=== PATIENT | female | born 1985 | race Caucasian/White ===

== ENCOUNTER → 2018-04-13 | Outpatient (CLI) | payer OTHER | END | disposition home or self-care (01) | LOC: LABWHC1 09:46 | PROVIDERS: ATTEND Internal Medicine Infectious Disease | DX: A49.3 Mycoplasma infection, unspecified site (principal); N34.1 Nonspecific urethritis | CPT/HCPCS: 36415; 84703 ==

== ENCOUNTER 2018-09-23 13:46 | Emergency (ER) | payer OTHER ==
[2018-09-23 14:06] VITALS: RESP 18
[2018-09-23] MEDS ORDERED: SODIUM CHLORIDE 0.9% 500 ML 500 ML IV ONE (14:36)
--- NOTE | 2018-09-23 15:00 | ED ---
Female Urogenital HPI - General Chief complaint: Vaginal Bleeding Stated complaint: 6 weeks & bleeding Source: patient Mode of arrival: ambulatory Limitations: no limitations - History of Present Illness Initial comments: 32-year-old female who denies past medical history presenting for evaluation for vaginal bleeding in . Patient states that she is about 6 weeks , last menstrual period was August 15, 2018. She states she seen on a clinic last Friday or ultrasound was performed revealing a viable intrauterine . Patient states that today she noticed a caution of blood around 1 PM when she's restroom, she states since the bleeding has decreased however remains persistent. Patient does admit to mild abdominal cramping, denies severe pain. Patient states she's been nauseated the entire , denies any changes. Patient denies any vomiting, diarrhea, fever, chills, urgency Frequency, dysuria, vaginal discharge. Remainder was negative, patient denies any recent shortness of breath, chest pain, back pain, numbness or tingling, constipation or diarrhea, headaches or visual changes, or any other complaints. Vital signs upon arrival within normal limits. Patient appears well, no signs of acute distress. Patient appears comfortable. Last Menstrual Period: 08/15/18 - Related Data Home Medications Medication Instructions Recorded Confirmed Dpq-[id number]-[id number] Acid 1 cap PO AC-SUPPER 09/23/18 09/23/18 [-U Capsule (formulary)] Previous Rx's Medication Instructions Recorded Cephalexin [Keflex] 500 mg PO Q12HR 5 Days #10 cap 09/23/18 Allergies Allergy/AdvReac Type Severity Reaction Status Date / Time No Known Allergies Allergy Verified 09/23/18 15:28 Review of Systems ROS Statement: Those systems with pertinent positive or pertinent negative responses have been documented in the HPI. ROS Other: All systems not noted in ROS Statement are negative. Past Medical History Past Medical History: No Reported History History of Any Multi-Drug Resistant Organisms: None Reported Past Surgical History: No Surgical Hx Reported Past Psychological History: Anxiety Smoking Status: Former smoker Past Alcohol Use History: Occasional Past Drug Use History: None Reported General Exam - General Exam Comments Initial Comments: General: The patient is awake and alert, in no distress, and does not appear acutely ill. Eye: Pupils are equal, round and reactive to light, extra-ocular movements are intact. No nystagmus. There is normal conjunctiva bilaterally. No signs of icterus. Ears, nose, mouth and throat: There are moist mucous membranes and no oral lesions. Neck: The neck is supple, there is no tenderness or JVD. Cardiovascular: There is a regular rate and rhythm. No murmur, rub or gallop is appreciated. Respiratory: Lungs are clear to auscultation, respirations are non-labored, breath sounds are equal. No wheezes, stridor, rales, or rhonchi. Gastrointestinal: No noted diaphoresis, jaundice, pallor, protecting postures or squirming. Symmetrical pigmentation of abdomen without signs of inflammation. Umbilicus mildline, inverted without swelling. No dilated veins. Abdomen no noted abdominal distention. No visible masses. No peristalsis, aortic pulsations, or ventral hernia. Bowel sounds audible in all 4 quadrants, unremarkable. Discomfort to palpation of the lower pelvic region, remainder of abdominal exam benign. Liver edge, not palpable. Spleen edge, right and left kidney not palpable. Superior bladder margin non-tender. Special Testing: Negative [place], Rov[place], McBurney, Ritika, cutaneous hyperesthesia. Iliopsoas and obturator tests negative bilaterally. Negative Heel Jar test.. No CVA tenderness. Digital rectal exam deferred. Negative lovett turners or cullens sign Musculoskeletal: Normal ROM, no tenderness. Strength 5/5. Sensation intact. Pulses equal bilaterally 2+. Neurological: A&O x 3. CN II-XII intact, There are no obvious motor or sensory deficits. Coordination appears grossly intact. Speech is normal. Skin: Skin is warm and dry and no rashes or lesions are noted. Psychiatric: Cooperative, appropriate mood & affect, normal judgment. Normal female hair pattern, shaved. Normal external examination no lesions. [place] moist mucosa, well rugated vagina. No vaginal discharge in vault. Small amount of blood in vaginal vault is open, black contents coming from os. No cervical motion or adnexal tenderness Limitations: no limitations Course Vital Signs 09/23/18 09/23/18 14:02 17:35 Temperature 98.6 F 98.2 F Pulse Rate 77 64 Respiratory 18 18 Rate Blood Pressure 124/81 118/81 O2 Sat by Pulse 100 97 Oximetry Medical Decision Making - Medical Decision Making 32yo with + , vaginal bleeding and mild abdominal cramping. Benign abdominal exam. Laboratory studies revealed HCG quant of 85, is is relatively low with LMP of 12-1-18 and 4 week gestational sac, however can be consistent with viable . too early to determine if viable. ABO obtained revealing O+. Pelvic ultrasound findings favor too early of to visualize intrauterine , there is a oval [id number] anechoic area WITHIN uterus. May reflect early gestational sac. No free fluid pelvic cul-de- sac. Hemoglobin stable. No need for Rhogam at this time. Pt will f/u with Dr. Kelli PALM for serial HCG and ultrasound. Upon pelvic exam there is no cervical motion or adnexal tenderness. No significant tenderness to patient of the pelvic region. This time I do feel patient has threatened versus spontaneous . Patient is to follow-up outpatient with [employer] Dr. Killian in the next 2-3 days for serial HCG and ultrasound. Pt is agreeable with plan and discharge. WBC and bacteria in urine will treat for possible underlying UTI. I called healthcare administration internship physician Dr. Barry speaking with her at 19: 08 discussing details of pt case, she will ensure close f/u with for serial HCG and U/S. - Lab Data Result diagrams: 09/23/18 15:05 09/23/18 15:05 Lab Results 09/23/18 09/23/18 09/23/18 Range/Units 15:05 15:05 15:05 WBC 6.8 (3.8-10.6) k/uL RBC 4.15 (3.80-5.40) m/uL Hgb 13.4 (11.4-16.0) gm/dL Hct 41.0 (34.0-46.0) % MCV 98.7 (80.0-100.0) fL MCH 32.2 (25.0-35.0) pg MCHC 32.6 (31.0-37.0) g/dL RDW 12.4 (11.5-15.5) % Plt Count 321 (150-450) k/uL Neutrophils % 67 % Lymphocytes % 24 % Monocytes % 6 % Eosinophils % 1 % Basophils % 1 % Neutrophils # 4.6 (1.3-7.7) k/uL Lymphocytes # 1.6 (1.0-4.8) k/uL Monocytes # 0.4 (0-1.0) k/uL Eosinophils # 0.1 (0-0.7) k/uL Basophils # 0.0 (0-0.2) k/uL Sodium (137-145) mmol/L Potassium (3.5-5.1) mmol/L Chloride (98-107) mmol/L Carbon Dioxide (22-30) mmol/L Anion Gap mmol/L BUN (7-17) mg/dL Creatinine (0.52-1.04) mg/dL Est GFR (CKD-EPI)AfAm (>60 ml/min/1.73 sqM) Est GFR (CKD-EPI)NonAf (>60 ml/min/1.73 sqM) Glucose (74-99) mg/dL Calcium (8.4-10.2) mg/dL Total Bilirubin (0.2-1.3) mg/dL AST (14-36) U/L ALT (9-52) U/L Alkaline Phosphatase (38-126) U/L Total Protein (6.3-8.2) g/dL Albumin (3.5-5.0) g/dL HCG, Quant mIU/mL Urine Color Urine Appearance (Clear) Urine pH (5.0-8.0) Ur Specific Ong (1.001-1.035) Urine Protein (Negative) Urine Glucose (UA) (Negative) Urine Ketones (Negative) Urine Blood (Negative) Urine Nitrite (Negative) Urine Bilirubin (Negative) Urine Urobilinogen (<2.0) mg/dL Ur Leukocyte Esterase (Negative) Urine RBC (0-5) /hpf Urine WBC (0-5) /hpf Urine WBC Clumps (None) /hpf Ur Squamous Epith Cells (0-4) /hpf Urine Bacteria (None) /hpf Urine Mucus (None) /hpf Urine HCG, Qual Detected (Not Detectd) Blood Type O Positive Blood Type Recheck No 09/23/18 09/23/18 09/23/18 Range/Units 15:05 15:05 15:05 WBC (3.8-10.6) k/uL RBC (3.80-5.40) m/uL Hgb (11.4-16.0) gm/dL Hct (34.0-46.0) % MCV (80.0-100.0) fL MCH (25.0-35.0) pg MCHC (31.0-37.0) g/dL RDW (11.5-15.5) % Plt Count (150-450) k/uL Neutrophils % % Lymphocytes % % Monocytes % % Eosinophils % % Basophils % % Neutrophils # (1.3-7.7) k/uL Lymphocytes # (1.0-4.8) k/uL Monocytes # (0-1.0) k/uL Eosinophils # (0-0.7) k/uL Basophils # (0-0.2) k/uL Sodium 138 (137-145) mmol/L Potassium 4.5 (3.5-5.1) mmol/L Chloride 109 H (98-107) mmol/L Carbon Dioxide 21 L (22-30) mmol/L Anion Gap 8 mmol/L BUN 11 (7-17) mg/dL Creatinine 0.66 (0.52-1.04) mg/dL Est GFR (CKD-EPI)AfAm >90 (>60 ml/min/1.73 sqM) Est GFR (CKD-EPI)NonAf >90 (>60 ml/min/1.73 sqM) Glucose 92 (74-99) mg/dL Calcium 9.2 (8.4-10.2) mg/dL Total Bilirubin 0.6 (0.2-1.3) mg/dL AST 17 (14-36) U/L ALT 24 (9-52) U/L Alkaline Phosphatase 50 (38-126) U/L Total Protein 6.6 (6.3-8.2) g/dL Albumin 4.1 (3.5-5.0) g/dL HCG, Quant 85.2 mIU/mL Urine Color Light Red Urine Appearance Cloudy H (Clear) Urine pH 5.5 (5.0-8.0) Ur Specific Ong 1.007 (1.001-1.035) Urine Protein 1+ H (Negative) Urine Glucose (UA) Negative (Negative) Urine Ketones Negative (Negative) Urine Blood Large H (Negative) Urine Nitrite Negative (Negative) Urine Bilirubin Negative (Negative) Urine Urobilinogen <2.0 (<2.0) mg/dL Ur Leukocyte Esterase Moderate H (Negative) Urine RBC 6 H (0-5) /hpf Urine WBC 17 H (0-5) /hpf Urine WBC Clumps Few H (None) /hpf Ur Squamous Epith Cells 20 H (0-4) /hpf Urine Bacteria Occasional H (None) /hpf Urine Mucus Few H (None) /hpf Urine HCG, Qual (Not Detectd) Blood Type Blood Type Recheck Disposition Clinical Impression: Threatened Disposition: HOME SELF-CARE Condition: Good Instructions: Miscarriage (ED), Threatened Miscarriage (ED) Additional Instructions: Please use medication as discussed. Please follow-up with family doctors or OBGYN for serial HCG and ultrasound . Please return to emergency room if the symptoms increase or worsen or for any other concerns, as discussed. Prescriptions: Cephalexin [Keflex] 500 mg PO Q12HR 5 Days #10 cap Is patient prescribed a controlled substance at d/c from ED?: No Referrals: Jatinder Bell DO [Primary Care Provider] - 1-2 days Clifford Pereira DO [Doctor of Osteopathic Medicine] - 1-2 days Time of Disposition: 16:54
[2018-09-23 15:23] LABS: Basophils % (A) 1 %; Eosinophils # (A) 0.1 k/uL (0-0.7); Eosinophils % (A) 1 %; HGB 13.4 gm/dL (11.4-16.0); Lymphocytes # (A) 1.6 k/uL (1.0-4.8); Lymphocytes % (A) 24 %; MCH 32.2 pg (25.0-35.0); MCHC 32.6 g/dL (31.0-37.0); MCV 98.7 fL (80.0-100.0); Mean Platelet Volume 6.4; Monocytes # (A) 0.4 k/uL (0-1.0); Monocytes % (A) 6 %; Neutrophils # (A) 4.6 k/uL (1.3-7.7); Neutrophils % (A) 67 %; Platelet Count 321 k/uL (150-450); RBC 4.15 m/uL (3.80-5.40); RDW 12.4 % (11.5-15.5); WBC 6.8 k/uL (3.8-10.6)
[2018-09-23 15:31] LABS: Appearance,Urine Cloudy (Clear); Bacteria,Urine Occasional /hpf; Bilirubin,Urine Negative (Negative); Blood,Urine Large (Negative); Color,Urine Light Red; Glucose,Urine (UA) Negative (Negative); Ketones,Urine Negative (Negative); Leukocyte Esterase,Urine Moderate (Negative); Mucus,Urine Few /hpf; Nitrite,Urine Negative (Negative); PH, Urine 5.5 (5.0-8.0); Protein,Urine 1+ (Negative); RBC,Urine 6 /hpf (0-5); Specific Gravity,Urine 1.007 (1.001-1.035); Squamous Epithelial Cell,Urine 20 /hpf (0-4); Urobilinogen,Urine <2.0 mg/dL (<2.0)
[2018-09-23 15:38] LABS: ALT 24 U/L (9-52); AST 17 U/L (14-36); Albumin 4.1 g/dL (3.5-5.0); Alkaline Phosphatase 50 U/L (38-126); Anion Gap 8 mmol/L; Blood Urea Nitrogen 11 mg/dL (7-17); Calcium 9.2 mg/dL (8.4-10.2); Carbon Dioxide 21 mmol/L (22-30); Chloride 109 mmol/L (98-107); Glucose 92 mg/dL (74-99); Potassium 4.5 mmol/L (3.5-5.1); Sodium 138 mmol/L (137-145); Total Bilirubin 0.6 mg/dL (0.2-1.3); Total Protein 6.6 g/dL (6.3-8.2)
--- NOTE | 2018-09-23 16:40 | US ---
EXAMINATION TYPE: Transabdominal DATE OF EXAM: 12/16/17 COMPARISON: NONE CLINICAL HISTORY: pain. Vaginal bleeding today; EXAM PERFORMED: Transvaginal (TV) and Transabdominal (TA) EXAM MEASUREMENTS: GESTATIONAL AGE / DATING Physician Established: Not yet established Dates by LMP: ( 5 weeks/4 days) EDC: 05/22/2019 Dates by First Scan: no prior US here Dates by Current Scan for: (4 weeks/5 days) EDC: 05/28/2019 MATERNAL ANATOMY Uterus: 9.1x 5.8 x 5.3cm Right Ovary: 2.1 x 1.8 x 1.7cm Left Ovary: 1.6 x 1.5 x 1.9 Post CDS / Adnexa: wnl Presence of free fluid: no Presence of corpus luteal cyst: 1.5 x 1.4 x 1.1cm Presence of subchorionic bleed: possibly, as fluid area seen adjacent to elongated Gestational Sac GESTATION / SURVEY MSD: 0.3cm (4 weeks/5 days), abnormal appearance as elongation noted on image #52, fluid layers noted within endometrium. Yolk Sac (normal less than 6mm): not seen IUP: possible abnormally appearing gestational sac in upper endometrium Date of LMP: 08/15/2018 Beta HcG (if available): NA Heterogeneous anteverted uterus is seen. Endometrium only measures up to 6 mm in thickness. There is oval 4 x 3 x 3 mm anechoic area within uterus. Findings could reflect early gestational sac. No yolk sac or pole is clearly seen. No free fluid is seen in pelvic cul-de-sac. Both ovaries are identified. Some peripheral follicles are present bilaterally. No suspicious extraov efe adnexal masses are seen. IMPRESSION: Findings favor too early to visualize intrauterine but spontaneous is in different ial and ectopic is not excluded. Serial beta hCG and ultrasound follow-up is advised.
[2018-09-23 17:37] VITALS: BP 118/81; PULSE 64; TEMP 98.2
== END 2018-09-23 17:35 | disposition home or self-care (01) ==
LOC: EC 13:46
DX: O20.0 Threatened abortion (principal); Z87.891 Personal history of nicotine dependence; Z3A.01 Less than 8 weeks gestation of pregnancy
CPT/HCPCS: 36415; 76801; 76817; 80053; 81001; 81025; 84702; 85025; 86900; 86901; 87086; 96360; 96361; 99284

== ENCOUNTER → 2018-09-25 | Outpatient (CLI) | payer OTHER | END | disposition home or self-care (01) | LOC: LABWHC1 15:21 | PROVIDERS: ATTEND Obstetrics & Gynecology | DX: O26.819 Pregnancy related exhaustion and fatigue, unspecified trimester (principal); Z3A.00 Weeks of gestation of pregnancy not specified | CPT/HCPCS: 36415; 84702 ==

== ENCOUNTER → 2020-10-05 | Outpatient (CLI) | payer OTHER ==
--- NOTE | 2020-10-05 13:09 | US ---
EXAMINATION TYPE: US OB <= 14 wk twins DATE OF EXAM: 10/05/2020 COMPARISON: NONE CLINICAL HISTORY: R10.32 LLQ CRAMPING, B DEMISE. EXAM PERFORMED: Transabdominal (TA) EXAM MEASUREMENTS: GESTATIONAL AGE / DATING Physician Established: Not yet established Dates by LMP: (11 weeks/2 days) EDC: 04/24/21 Dates by First Scan: No previous at this facility Dates by Current Scan for Baby A: (11 weeks/5 days) EDC: 04-21-21 Dates by Current Scan for Baby B: (8 weeks/0 days) EDC: not viable MATERNAL ANATOMY Uterus: 15.7 x 7.6 x 8.7cm Right Ovary: 2.4 x 1.8 x 1.6cm Left Ovary: 2.4 x 1.2 x 2.1cm Post CDS / Adnexa: wnl Presence of free fluid: no Presence of two separate gestational sacs: yes GESTATION / SURVEY TWIN A CRL: 4.9cm (11wks/5days) Yolk Sac (normal less than 6mm): not visualized Heart Rate: 163 bpm Rhythm: Normal IUP: Viable IUP TWIN B CRL: 1.7cm (8wks/0days) Yolk Sac (normal less than 6mm): not seen Heart Rate: no heart tones Date of LMP: 07/18/20 Beta HcG (if available): Not available at this time There appears to be a demise at 8 weeks 0 days of twin B. Viable twin A with heart rate of 163 beats per minute. IMPRESSION: 1. Discrepancy between the twin ages, lack of heart tones and the smaller twin B. Findings can be compatible with intrauterine demise of twin B. 2. Twin A measuring 11 weeks 5 days gestation based on crown-rump length. Cardiac activity measures 1 63 bpm.
== END | disposition home or self-care (01) ==
LOC: RADUSWWP 10:09
PROVIDERS: ATTEND Obstetrics & Gynecology
DX: O26.891 Other specified pregnancy related conditions, first trimester (principal); Z3A.11 11 weeks gestation of pregnancy
CPT/HCPCS: 76801; 76802

== ENCOUNTER 2021-01-22 19:05 | Outpatient (CLI) | payer OTHER ==
[2021-01-22 20:40] LABS: Appearance,Urine Cloudy (Clear); Bilirubin,Urine Negative (Negative); Blood,Urine Negative (Negative); Color,Urine Light Yellow; Glucose,Urine (UA) Negative (Negative); Ketones,Urine Negative (Negative); Leukocyte Esterase,Urine Negative (Negative); Mucus,Urine Rare /hpf; Nitrite,Urine Negative (Negative); Protein,Urine Negative (Negative); RBC,Urine 1 /hpf (0-5); Specific Gravity,Urine 1.012 (1.001-1.035); Squamous Epithelial Cell,Urine 6 /hpf (0-4); Urobilinogen,Urine <2.0 mg/dL (<2.0); WBC,Urine 3 /hpf (0-5)
[2021-01-22 21:53] VITALS: BP 124/67; PULSE 75; RESP 16; TEMP 97.8
--- NOTE | 2021-01-22 21:56 | P.MSEPDOC ---
Presenting Problems - Arrival Data Date of Arrival on Unit: 01/22/21 Time of Arrival on Unit: 19:05 Mode of Transport: Ambulatory - Complaint OB-Reason for Admission/Chief Complaint: Other Comment: abdominal/flank pain Medical History - Information : 4 Para: 2 Term: 2 : 0 Abortions: Spontaneous or Elective: 1 Number of Living Children: 2 - Gestational Age Gestational Age by GALLO (wks/days): 26 Weeks and 5 Days - History Comment: was a twin , demise at 10wks Review of Systems - Review of Systems Constitutional: No problems Breast: No problems ENT: No problems Cardiovascular: No problems Respiratory: No problems Gastrointestinal: No problems Genitourinary: No problems Musculoskeletal: No problems Neurological: No problems Skin: No problems Vital Signs - Temperature Temperature: 97.8 F Temperature Source: Oral - Pulse Pulse Oximetery Pulse Rate: 75 Pulse Assessment Method: Pulse Oximetry - Respirations Respiratory Rate: 16 Oxygen Delivery Method: Room Air O2 Sat by Pulse Oximetry: 98 - Blood Pressure Right Arm Blood Pressure: 124/67 Blood Pressure Mean: 86 Blood Pressure Source: Automatic Cuff Medical Screen Scoring (Pre) - Cervical Exam Dilation: Exam Deferred Effacement: Exam Deferred Membranes: Intact - Uterine Contractions Frequency: N/A Duration: N/A Intensity: N/A - Maternal Vital Signs Maternal Temperature: N/A Maternal Blood Pressure: N/A Signs of Preeclampsia: N/A Maternal Respirations: N/A - Maternal Trauma Maternal Trauma: N/A - Assessment - Baby A Baseline FHR: 130 Heart Rate - NICHD Category: Category I (Normal) = 0 Position: N/A Station: N/A - Total Score - Baby A Total Score - Baby A: 0 - Total Score - Baby B Total Score - Baby B: 0 - Total Score - Baby C Total Score - Baby C: 0 - Level of Risk - Baby A Level of Risk - Baby A: Low (0-5) - Level of Risk - Baby B Level of Risk - Baby B: Low (0-5) - Level of Risk - Baby C Level of Risk - Baby C: Low (0-5) Physician Notification (Pre) - Physician Notified Physician Notified Date: 01/22/21 Physician Notified Time: 19:20 New Order Received: Yes - Notification Comment Comment: Dr. Gu notified of pt's complaints. Order for a UA. 2114 - Dr. Kishor brand notified of UA results and pt's pain is better. Orders to d/c Disposition - Disposition OB Disposition: Discharge to home Discharge Date: 01/22/21 Discharge Time: 21:25 I agree with the RN Medical Screening Exam: Yes Case reviewed; plan agreed upon as documented in EMR&OBIX.: Yes Diagnosis: PAIN, UNSPECIFIED (Patient presents to labor and delivery with complaints of upper left back pain that also radiated to the right side. She denies any nausea vomiting, vaginal bleeding, or contractions. Pain was localized to the left flank area. Urinalysis is negative. heart tones are reassuring. At this point this appears to be just discomfort of therefore patient's felt be stable for discharge home follow up as scheduled with Dr. Killian. She was given strict instructions return had any worsening symptomatology vaginal bleeding, etc.)
== END 2021-01-22 21:25 | disposition home or self-care (01) ==
LOC: FBPOP 19:05
PROVIDERS: ATTEND Obstetrics & Gynecology
DX: O26.892 Other specified pregnancy related conditions, second trimester (principal); M54.6 Pain in thoracic spine; Z3A.26 26 weeks gestation of pregnancy
CPT/HCPCS: 81001; 99213

== ENCOUNTER → 2021-02-16 | Outpatient (CLI) | payer OTHER ==
[2021-02-16 17:16] LABS: Amorphous Sediment,Urine Rare /hpf; Appearance,Urine Turbid (Clear); Bacteria,Urine Occasional /hpf; Bilirubin,Urine Negative (Negative); Blood,Urine Negative (Negative); Color,Urine Yellow; Glucose,Urine (UA) Trace (Negative); Ketones,Urine Negative (Negative); Leukocyte Esterase,Urine Large (Negative); Mucus,Urine Moderate /hpf; Nitrite,Urine Negative (Negative); Protein,Urine 1+ (Negative); Specific Gravity,Urine 1.022 (1.001-1.035); Squamous Epithelial Cell,Urine 171 /hpf (0-4); Urobilinogen,Urine <2.0 mg/dL (<2.0); WBC,Urine 31 /hpf (0-5)
[2021-02-16 17:23] LABS: Creatinine,Urine Random 118.8 mg/dL; Protein/Creatinine Ratio,Urine 0.101
[2021-02-16 17:39] VITALS: RESP 16
[2021-02-16 17:47] LABS: Basophils % (A) 0 %; Eosinophils # (A) 0.1 k/uL (0-0.7); Eosinophils % (A) 1 %; HCT 38.2 % (34.0-46.0); HGB 13.1 gm/dL (11.4-16.0); Lymphocytes # (A) 1.7 k/uL (1.0-4.8); Lymphocytes % (A) 20 %; MCH 32.1 pg (25.0-35.0); MCHC 34.1 g/dL (31.0-37.0); MCV 94.1 fL (80.0-100.0); Mean Platelet Volume 7.6; Monocytes # (A) 0.5 k/uL (0-1.0); Monocytes % (A) 6 %; Neutrophils # (A) 6.3 k/uL (1.3-7.7); Neutrophils % (A) 73 %; Platelet Count 255 k/uL (150-450); RBC 4.07 m/uL (3.80-5.40); RDW 13.1 % (11.5-15.5); WBC 8.7 k/uL (3.8-10.6)
[2021-02-16 17:58] LABS: ALT 8 U/L (4-34); AST 17 U/L (14-36); African American GFR (CKD) >90 (>60 ml/min/1.73 sqM); Blood Urea Nitrogen 6 mg/dL (7-17); LDH 358 U/L (313-618); Non-African American GFR(CKD) >90 (>60 ml/min/1.73 sqM); Uric Acid 2.7 mg/dL (3.7-7.4)
[2021-02-16 19:14] VITALS: BP 117/72; PULSE 74; TEMP 97
--- NOTE | 2021-02-27 07:39 | P.MSEPDOC ---
Presenting Problems - Arrival Data Date of Arrival on Unit: 02/16/21 Time of Arrival on Unit: 15:10 Mode of Transport: Ambulatory - Complaint OB-Reason for Admission/Chief Complaint: Possible Onset of Labor, Rule Out PROM, Headache, Visual Disturbances, Dizziness Medical History - Information : 5 Para: 2 Term: 2 Abortions: Spontaneous or Elective: 2 Number of Living Children: 2 - Gestational Age Gestational Age by GALLO (wks/days): 30 Weeks and 2 Days Review of Systems - Review of Systems Constitutional: No problems Breast: No problems ENT: No problems Cardiovascular: No problems Respiratory: No problems Gastrointestinal: No problems Genitourinary: No problems Musculoskeletal: No problems Neurological: No problems Skin: No problems Vital Signs - Temperature Temperature: 97.0 F Temperature Source: Temporal Artery Scan - Pulse Right Pulse Rate: 74 Pulse Assessment Method: Automatic Cuff - Respirations Respiratory Rate: 16 Oxygen Delivery Method: Room Air O2 Sat by Pulse Oximetry: 99 - Blood Pressure Right Arm Blood Pressure: 117/72 Blood Pressure Mean: 87 Blood Pressure Source: Automatic Cuff Medical Screen Scoring - Assessment - Baby A Baseline FHR: 135 Physician Notification - Physician Notified Physician Notified Date: 02/16/21 Physician Notified Time: 16:40 Physician: Clifford Pereira Order Received: No - Notification Comment Comment: Comment: Dr. Pereira notified of maternal c/o cramping nausea on and off for the last. few days, headache, seeing spots in shower this afternoon, felt fluid leaking after. shower, no contractions noted on monitor or per pt, abdomen soft to palpation. Reactive. NST. Amnisure negative, Cervical exam. Dr. Pereira coming in Disposition - Disposition OB Disposition: Discharge to home Discharge Date: 02/16/21 Discharge Time: 18:55 I agree with the RN Medical Screening Exam: Yes Case reviewed; plan agreed upon as documented in EMR&OBIX.: Yes Diagnosis: FALSE LABOR BEFORE 37 COMPLETED WEEKS OF GEST, THIRD TRI
== END ==
LOC: FBPOP 15:10
PROVIDERS: ATTEND Obstetrics & Gynecology
DX: O47.03 False labor before 37 completed weeks of gestation, third trimester (principal); Z3A.30 30 weeks gestation of pregnancy; Z87.891 Personal history of nicotine dependence
CPT/HCPCS: 59025; 81001; 82565; 82570; 82731; 83615; 84112; 84156; 84450; 84460; 84520; 84550; 85025; 99213

== ENCOUNTER 2021-03-08 22:15 | Outpatient (CLI) | payer OTHER ==
[2021-03-08 23:00] VITALS: BP 108/69; PULSE 70; RESP 16; TEMP 95.8
--- NOTE | 2021-03-09 01:09 | P.MSEPDOC ---
Presenting Problems - Arrival Data Date of Arrival on Unit: 03/08/21 Time of Arrival on Unit: 22:15 Mode of Transport: Ambulatory - Complaint OB-Reason for Admission/Chief Complaint: Pain, Dizziness Comment: Patient presents with abdominal pain that started around 1700 this evening,. states it comes and goes in nature, that is is more tightening than pain, but has. occasional "period like cramps." Patient states she has some chest heaviness and. lightheadness or "weird pressure like feeling in my head." Medical History - Information : 3 Para: 2 Term: 2 : 0 Abortions: Spontaneous or Elective: 0 Number of Living Children: 2 - Gestational Age Gestational Age by GALLO (wks/days): 33 Weeks and 1 Days - History Complications: Prior Review of Systems - Review of Systems Constitutional: No problems Breast: No problems ENT: No problems Cardiovascular: No problems Respiratory: No problems Gastrointestinal: No problems Genitourinary: No problems Musculoskeletal: No problems Neurological: No problems Skin: No problems Vital Signs - Temperature Temperature: 95.8 F Temperature Source: Oral - Pulse Pulse Oximetery Pulse Rate: 70 Pulse Assessment Method: Pulse Oximetry - Respirations Respiratory Rate: 16 Oxygen Delivery Method: Room Air O2 Sat by Pulse Oximetry: 98 - Blood Pressure Sitting Blood Pressure: 108/69 Blood Pressure Mean: 82 Blood Pressure Source: Automatic Cuff Medical Screen Scoring - Cervical Exam Dilation (cm): 0.5 Effacement (%): 0 Membranes: Intact - Uterine Contractions Intensity: Absent - Assessment - Baby A Baseline FHR: 125 Heart Rate - NICHD Category: Category I (Normal) NST: Reactive Physician Notification - Physician Notified Physician Notified Date: 03/08/21 Physician Notified Time: 22:38 Physician: Porsha Chen New Order Received: Yes - Notification Comment Comment: Orders given to discharge patient home with instructions, patient to keep regularly scheduled appt for 03/[address] Pereira. Maternal Triage Index - Urgent/Priority 2 Urgent Priority 2: Yes Provider Notified: Porsha Chen Provider Notified Time: 22:38 Criteria Met for Priority 2: Patient is 33 weeks and 1 day presents with C/O of Abdominal pain that "comes and goes" since approximately 1700 this evening. Patient denies leaking of fluid or vaginal bleeding, patient denies intercourse in the 24 hours. Patient complains of chest heaviness and being lightheaded. Vitals signs are within normal limits, reflexes 2+, clonus absent, no swelling or edema noted. Patient denies headache, nausea, blurred vision. Patient states she has anxiety. - Non-Urgent/Priority 4 Non-Urgent Priority 4: Yes Criteria Met for Priority 4: n/a Disposition - Disposition OB Disposition: Discharge to home, Written follow up instructions reviewed Discharge Date: 03/08/21 Discharge Time: 22:46 I agree with the RN Medical Screening Exam: Yes Case reviewed; plan agreed upon as documented in EMR&OBIX.: Yes Diagnosis: RELATED CONDITIONS, UNSPECIFIED, THIRD TRIMESTER
== END 2021-03-08 22:46 | disposition home or self-care (01) ==
LOC: FBPOP 22:15
PROVIDERS: ATTEND Obstetrics & Gynecology
DX: O26.893 Other specified pregnancy related conditions, third trimester (principal); R10.9 Unspecified abdominal pain; R42 Dizziness and giddiness; Z3A.33 33 weeks gestation of pregnancy
CPT/HCPCS: 59025; 99213

== ENCOUNTER 2021-03-15 12:07 | Outpatient (CLI) | payer OTHER ==
[2021-03-15 13:45] VITALS: BP 116/71; PULSE 93; RESP 16; TEMP 96.7
--- NOTE | 2021-03-15 19:11 | P.MSEPDOC ---
Presenting Problems - Arrival Data Date of Arrival on Unit: 03/15/21 Time of Arrival on Unit: 12:07 Mode of Transport: Ambulatory - Complaint OB-Reason for Admission/Chief Complaint: Dizziness, Other Comment: Nose blood, "Firework" vision, dizziness, headache Medical History - Information : 5 Para: 2 Term: 2 : 0 Abortions: Spontaneous or Elective: 2 Number of Living Children: 2 - Gestational Age Gestational Age by GALLO (wks/days): 34 Weeks and 1 Days Review of Systems - Review of Systems Constitutional: No problems Breast: No problems ENT: No problems Cardiovascular: No problems Respiratory: No problems Gastrointestinal: No problems Genitourinary: No problems Musculoskeletal: No problems Neurological: No problems Skin: No problems Vital Signs - Temperature Temperature: 96.7 F Temperature Source: Temporal Artery Scan - Pulse Left Sitting Brachial Pulse Rate: 93 Pulse Assessment Method: Automatic Cuff - Respirations Respiratory Rate: 16 Oxygen Delivery Method: Room Air O2 Sat by Pulse Oximetry: 97 - Blood Pressure Right Arm Sitting Blood Pressure: 116/71 Blood Pressure Mean: 86 Blood Pressure Source: Automatic Cuff Medical Screen Scoring - Assessment - Baby A Baseline FHR: 140 Heart Rate - NICHD Category: Category I (Normal) NST: Reactive Physician Notification - Physician Notified Physician Notified Date: 03/15/21 Physician Notified Time: 12:40 Physician: Porsha Chen Order Received: Yes - Notification Comment Comment: Spk c\\Dr. Chen, advsd pt of Dr. Harris, , 34 /, c/o bloody nose and "firework" vision, dizziness. Pt has not eaten today. Blood pressures reviewed. Reactive NST. Orders rec'd to d/c home, follow up as scheduled. Maternal Triage Index - Maternal Triage Index Presenting for scheduled procedure w/no complaint: No - Stat/Priority 1 Stat Priority 1: No - Urgent/Priority 2 Urgent Priority 2: No - Prompt/Priority 3 Prompt Priority 3: No - Non-Urgent/Priority 4 Non-Urgent Priority 4: Yes Criteria Met for Priority 4: Headache, dizziness, bloody nose and "firework" vision upon waking. Disposition - Disposition OB Disposition: Discharge to home, Written follow up instructions reviewed Discharge Date: 03/15/21 Discharge Time: 12:45 I agree with the RN Medical Screening Exam: Yes Case reviewed; plan agreed upon as documented in EMR&OBIX.: Yes Diagnosis: RELATED CONDITIONS, UNSPECIFIED, THIRD TRIMESTER
== END 2021-03-15 12:45 | disposition home or self-care (01) ==
LOC: FBPOP 12:07
PROVIDERS: ATTEND Obstetrics & Gynecology
DX: O26.893 Other specified pregnancy related conditions, third trimester (principal); R42 Dizziness and giddiness; R51.9 Headache, unspecified; Z3A.34 34 weeks gestation of pregnancy; Z87.891 Personal history of nicotine dependence
CPT/HCPCS: 59025; 99213

== ENCOUNTER 2021-03-21 12:43 | Outpatient (CLI) | payer OTHER ==
[2021-03-21 13:30] VITALS: BP 118/63; PULSE 90; RESP 16; TEMP 96.7
--- NOTE | 2021-03-21 17:38 | P.MSEPDOC ---
Presenting Problems - Arrival Data Date of Arrival on Unit: 03/21/21 Time of Arrival on Unit: 12:43 Mode of Transport: Ambulatory - Complaint OB-Reason for Admission/Chief Complaint: NST Comment: Pt sent from office c\script for NST. On monitor in office for 30 minutes with one accel. Medical History - Information : 5 Para: 2 - Gestational Age Gestational Age by GALLO (wks/days): 35 Weeks and 0 Days Review of Systems - Review of Systems Constitutional: No problems Breast: No problems ENT: No problems Cardiovascular: No problems Respiratory: No problems Gastrointestinal: No problems Genitourinary: No problems Musculoskeletal: No problems Neurological: No problems Skin: No problems Vital Signs - Temperature Temperature: 96.7 F Temperature Source: Temporal Artery Scan - Pulse Right Sitting Brachial Pulse Rate: 90 Pulse Assessment Method: Automatic Cuff - Respirations Respiratory Rate: 16 Oxygen Delivery Method: Room Air O2 Sat by Pulse Oximetry: 99 - Blood Pressure Right Arm Sitting Blood Pressure: 118/63 Blood Pressure Mean: 81 Blood Pressure Source: Automatic Cuff Medical Screen Scoring - Assessment - Baby A Baseline FHR: 135 Heart Rate - NICHD Category: Category I (Normal) NST: Reactive Physician Notification - Physician Notified Physician Notified Date: 03/21/21 Physician Notified Time: 13:13 Physician: Clifford Pereira New Order Received: Yes - Notification Comment Comment: Dr. Pereira present at bedside, reviewed EFM and states pt may be discharged home and to follow up as scheduled. Maternal Triage Index - Maternal Triage Index Presenting for scheduled procedure w/no complaint: No - Stat/Priority 1 Stat Priority 1: No - Urgent/Priority 2 Urgent Priority 2: Yes Provider Notified: Clifford Pereira Provider Notified Time: 13:00 Criteria Met for Priority 2: Pt reports decreased movement with nonreactive NST in office. Pt sent with script for NST. Disposition - Disposition OB Disposition: Discharge to home, Written follow up instructions reviewed Discharge Date: 03/21/21 Discharge Time: 13:20 I agree with the RN Medical Screening Exam: Yes Case reviewed; plan agreed upon as documented in EMR&OBIX.: Yes Diagnosis: DECREASED MOVEMENTS, THIRD TRIMESTER, FETUS 1
== END 2021-03-21 13:20 | disposition home or self-care (01) ==
LOC: FBPOP 12:43
PROVIDERS: ATTEND Obstetrics & Gynecology
DX: O36.8131 Decreased fetal movements, third trimester, fetus 1 (principal); Z3A.35 35 weeks gestation of pregnancy; Z87.891 Personal history of nicotine dependence
CPT/HCPCS: 59025

== ENCOUNTER 2021-04-02 01:10 | Outpatient (CLI) | payer OTHER ==
[2021-04-02 01:59] VITALS: BP 125/75; PULSE 91; RESP 16; TEMP 96.7
--- NOTE | 2021-05-01 20:54 | P.MSEPDOC ---
Presenting Problems - Arrival Data Date of Arrival on Unit: 04/02/21 Time of Arrival on Unit: 01:10 Mode of Transport: Ambulatory - Complaint OB-Reason for Admission/Chief Complaint: Other Comment: cramping for a couple of days, left side pain Medical History - Information : 3 Para: 2 Term: 2 : 0 Abortions: Spontaneous or Elective: 0 Number of Living Children: 2 - Gestational Age Gestational Age by GALLO (wks/days): 36 Weeks and 5 Days - History Sexually Transmitted Diseases: HSV Review of Systems - Review of Systems Constitutional: No problems Breast: No problems ENT: No problems Cardiovascular: No problems Respiratory: No problems Gastrointestinal: No problems Genitourinary: No problems Musculoskeletal: No problems Neurological: No problems Skin: No problems Vital Signs - Temperature Temperature: 96.7 F Temperature Source: Temporal Artery Scan - Pulse Pulse Oximetery Pulse Rate: 91 Pulse Assessment Method: Pulse Oximetry - Respirations Respiratory Rate: 16 Oxygen Delivery Method: Room Air O2 Sat by Pulse Oximetry: 97 - Blood Pressure Right Arm Blood Pressure: 125/75 Blood Pressure Mean: 91 Blood Pressure Source: Automatic Cuff Medical Screen Scoring - Cervical Exam Dilation (cm): 2 Effacement (%): 60 Station: -3 Membranes: Intact - Uterine Contractions Frequency From (mins): 0 Frequency To (mins): 0 Duration From (seconds): 0 Duration To (seconds): 0 - Assessment - Baby A Baseline FHR: 125 Heart Rate - NICHD Category: Category I (Normal) NST: Reactive Physician Notification - Physician Notified Physician Notified Date: 04/02/21 Physician Notified Time: 01:40 Physician: Mila Barry New Order Received: Yes - Notification Comment Comment: Dr. Barry called, report given on maternal and status, complaints of cramping for a couple of days and left side pain since 2300. Pain is on the left side of her abdomen, abdomen is nontender. One contraction graphed, SVE 2/60/-3 (same as last week in the office), NST reactive and pt seems relieved after being told that. Vitals WNL. Orders to discharge pt home. Maternal Triage Index - Maternal Triage Index Presenting for scheduled procedure w/no complaint: No - Stat/Priority 1 Stat Priority 1: No - Urgent/Priority 2 Urgent Priority 2: No - Prompt/Priority 3 Prompt Priority 3: No - Non-Urgent/Priority 4 Non-Urgent Priority 4: Yes Criteria Met for Priority 4: 36 5/7 weeks, irregular cramping for a couple of days, left side pain Disposition - Disposition OB Disposition: Discharge to home Discharge Date: 04/02/21 Discharge Time: 01:50 I agree with the RN Medical Screening Exam: Yes Case reviewed; plan agreed upon as documented in EMR&OBIX.: Yes Diagnosis: PRIMARY INADEQUATE CONTRACTIONS
== END 2021-04-02 01:50 | disposition home or self-care (01) ==
LOC: FBPOP 01:10
PROVIDERS: ATTEND Obstetrics & Gynecology
DX: O62.0 Primary inadequate contractions (principal); Z3A.36 36 weeks gestation of pregnancy
CPT/HCPCS: 59025; 99213

== ENCOUNTER 2021-04-20 10:06 | Inpatient (IN) | payer OTHER ==
[2021-04-19 09:09] VITALS: BMI 39.4
[2021-04-20] MEDS ORDERED: CITRIC ACID-SODIUM CITRATE 15 ML CUP PO ONE (10:29)
[2021-04-20] MEDS ORDERED: LACTATED RINGERS 1,000 ML IV ONE (10:29)
[2021-04-20] MEDS ORDERED: LACTATED RINGERS 1,000 ML IV SCH (10:30)
[2021-04-20 10:41] LABS: Basophils % (A) 0 %; Eosinophils % (A) 1 %; HCT 39.3 % (34.0-46.0); HGB 13.3 gm/dL (11.4-16.0); Lymphocytes # (A) 1.6 k/uL (1.0-4.8); Lymphocytes % (A) 24 %; MCH 32.5 pg (25.0-35.0); MCHC 33.9 g/dL (31.0-37.0); MCV 95.9 fL (80.0-100.0); Mean Platelet Volume 8.7; Monocytes # (A) 0.5 k/uL (0-1.0); Monocytes % (A) 7 %; Neutrophils # (A) 4.4 k/uL (1.3-7.7); Neutrophils % (A) 65 %; Platelet Count 264 k/uL (150-450); RDW 13.6 % (11.5-15.5); WBC 6.8 k/uL (3.8-10.6)
[2021-04-20] MEDS ORDERED: KETOROLAC 15 MG/ML 1 ML VIAL ONE (12:21)
[2021-04-20] MEDS ORDERED: ONDANSETRON 4 MG/2 ML VIAL ONE (12:21)
[2021-04-20] MEDS ORDERED: MORPHINE SULFATE (PF) 0.3 MG/0.3 ML SYR ONE (12:21)
[2021-04-20] MEDS ORDERED: OXYTOCIN 30 UNITS/500 ML NS BAG IV ONE (12:21)
[2021-04-20] MEDS ORDERED: diphenhydrAMINE 50 MG CAP PO PRN (13:10)
[2021-04-20] MEDS ORDERED: METOCLOPRAMIDE 5 MG/ML 2 ML VIAL IVP PRN (13:10)
[2021-04-20] MEDS ORDERED: diphenhydrAMINE 25 MG CAP PO PRN (13:10)
[2021-04-20] MEDS ORDERED: ZOLPIDEM 5 MG TAB PO PRN (13:10)
[2021-04-20] MEDS ORDERED: NALOXONE 0.4 MG/ML 1 ML VIAL IV PRN (13:10)
[2021-04-20] MEDS ORDERED: SIMETHICONE 80 MG CHEWABLE PO PRN (13:10)
[2021-04-20] MEDS ORDERED: HYDROmorphone 2 MG TAB PO PRN (13:10)
[2021-04-20] MEDS ORDERED: diphenhydrAMINE 50 MG/ML 1 ML VIAL IVP PRN ×2 (13:10)
[2021-04-20] MEDS ORDERED: ONDANSETRON 4 MG/2 ML VIAL IVP PRN (13:10)
--- NOTE | 2021-04-20 13:13 | P.HPOB ---
History of Present Illness H&P Date: 04/20/21 Chief Complaint: Intrauterine term history of HSV Vonnie is a 35-year-old at 39 weeks gestation arise for primary due to history of HSV. Discussion with her involving trial of labor versus C- section were made and she has opted for section as her precaution. Risks/benefits/alternatives to this procedure were reviewed with the patient in detail and all questions were answered for her prior to proceeding to the operative room. It is noted that despite being on Valtrex she occasionally will have outbreaks and she was having outbreaks essentially monthly prior to . All the questions are answered for her. A category 1 tracing is noted. Past Medical History Past Medical History: No Reported History History of Any Multi-Drug Resistant Organisms: None Reported Past Surgical History: No Surgical Hx Reported Additional Past Surgical History / Comment(s): [place] teeth extracted. Past Anesthesia/Blood Transfusion Reactions: No Reported Reaction Past Psychological History: Anxiety Smoking Status: Former smoker Past Alcohol Use History: Occasional Additional Past Alcohol Use History / Comment(s): Quit smoking in 2019. Smoked for 9 yrs, <1PPD. Occasional alcohol use before , none now. Past Drug Use History: None Reported - Past Family History Mother Family Medical History: Hypertension Father Family Medical History: Hypertension Medications and Allergies Home Medications Medication Instructions Recorded Confirmed Type Pvb-Dxls-Phsap Acid 1 cap PO AC-SUPPER 09/23/18 04/20/21 History [-U Capsule (formulary)] Allergies Allergy/AdvReac Type Severity Reaction Status Date / Time No Known Allergies Allergy Verified 04/20/21 10:10 Exam Osteopathic Statement: *. No significant issues noted on an osteopathic s tructural exam other than those noted in the History and Physical/Consult. Intake and Output 04/19/21 04/20/21 04/20/21 22:59 06:59 14:59 Other: Weight 104.326 kg - OBG Physical Exam Breast: both: normal (no masses) Abdomen: bowel sounds normal, no diffuse tenderness, no bruit present, no guarding noted, no hepatomegaly, no splenomegaly, no mass Vulva: both: normal Vagina: normal moisture, no discharge Cervix: no lesion, no discharge Uterus: normal size, normal contour Adnexa: both: normal Anus/Rectum: normal perianal skin, no rectal mass, no hemorrhoids, heme negative Results Result Diagrams: 04/20/21 10:25
--- NOTE | 2021-04-20 13:15 | P.OP ---
Date of Procedure: 04/20/21 Preoperative Diagnosis: Intrauterine at term: History of HSV Postoperative Diagnosis: Same Procedure(s) Performed: Primary low-transverse section Anesthesia: spinal Surgeon: Clifford Pereira Machine Former #1: Mila Barry Estimated Blood Loss (ml): 420 IV fluids (ml): 1,000 Urine output (ml): 550 Pathology: none sent Condition: stable Disposition: floor Operative Findings: Female scores of 9 and 9 at one and 5 respectively and weight was 8 lbs. 4 oz. Description of Procedure: Patient was taken to the operating suite where a spinal anesthetic was found be adequate. She was prepped and draped in the normal sterile fashion and placed in dorsal supine position with leftward tilt. Initially a Pfannenstiel skin incision was made and this incision was then carried through to underlying layer of fascia with second knife. Fascia was then nicked in midline and this opening was extended laterally with Dunaway scissors. Superior and inferior aspect of this incision were then grasped tented up and bluntly and sharp sharply dissected off the rectus muscles. Rectus muscles were then divided midline and blunt dissection the peritoneum was performed. This opening was then extended superiorly and inferiorly with good visualization of both bowel bladder. Bladder blade was then placed in the bladder flap identified. It was entered with metastases scissors and carried across face uterus. It was then bluntly dissected out of the operative field. Knife was then used to incise uterus and this incision was fully developed with hemostat. It was then extended bluntly. Head was then atraumatically delivered all but the anterior posterior shoulders. Mouth nares were then bulb suctioned. Once baby was fully delivered nursery personnel was present to some care and the umbilical cord was clamped cut usual fashion. Placenta was then delivered intact Pitocin was added to the IV. Uterus was then exteriorized cleared of clots and debris and closed in 2 layers with 0 Vicryl suture. Once excellent hemostasis was obtained 3-0 Vicryl used to reapproximate the bladder flap. Blood and debris was then suctioned from the posterior cul-de-sac and the uterus was reinserted into the abdomen. Gutters were cleared.
[2021-04-20] MEDS: ACETAMINOPHEN TAB 500 MG TAB PO SCH (16:23)
[2021-04-20] MEDS: LACTATED RINGERS 1,000 ML IV SCH ×2 (16:24→16:28)
[2021-04-20] MEDS: SENNOSIDES-DOCUSATE SODIUM 1 EACH TAB PO SCH (19:28)
[2021-04-20] MEDS: IBUPROFEN 600 MG TAB PO SCH (20:38)
[2021-04-21] MEDS: IBUPROFEN 600 MG TAB PO SCH ×4 (01:54→19:13)
[2021-04-21] MEDS: KETOROLAC 15 MG/ML 1 ML VIAL IVP SCH ×3 (01:56→14:20)
[2021-04-21] MEDS: ACETAMINOPHEN TAB 500 MG TAB PO SCH ×5 (01:58→21:17)
[2021-04-21] MEDS: HYDROmorphone 2 MG TAB PO PRN ×3 (05:39→22:33)
[2021-04-21 05:51] LABS: Basophils % (A) 0 %; Eosinophils # (A) 0.1 k/uL (0-0.7); Eosinophils % (A) 1 %; HCT 30.9 % (34.0-46.0); Lymphocytes # (A) 1.6 k/uL (1.0-4.8); Lymphocytes % (A) 18 %; MCH 31.6 pg (25.0-35.0); MCHC 32.4 g/dL (31.0-37.0); MCV 97.3 fL (80.0-100.0); Mean Platelet Volume 8.9; Monocytes # (A) 0.5 k/uL (0-1.0); Monocytes % (A) 6 %; Neutrophils # (A) 6.5 k/uL (1.3-7.7); Neutrophils % (A) 74 %; Platelet Count 193 k/uL (150-450); RBC 3.18 m/uL (3.80-5.40); WBC 8.8 k/uL (3.8-10.6)
[2021-04-21] MEDS: SENNOSIDES-DOCUSATE SODIUM 1 EACH TAB PO SCH ×2 (08:01→19:14)
--- NOTE | 2021-04-21 08:40 | P.PN ---
Progress Note - Text Progress Note Date: 04/21/21 (529) Anesthesia Postop day 1 Subjective: Status Post section with Duramorph. Patient seen and examined. Doing well without complaint. VAS 2 out of 10. No nausea or vomiting. Mild pruritus tolerable.. Eyes fever. Gross lower extremity strength intact. Without apparent anesthetic complications. Objective: Vital signs reviewed Heart: Regular Rate Lungs: Good chest excursion Abdomen: Appears nondistended Assessment: Status post with Duramorph postop day 1 Plan: Continue current care with your medical management.
--- NOTE | 2021-04-21 13:07 | P.PNOBGPC ---
Subjective - Subjective Principal diagnosis: Postop day 1 Interval history: Vonnie is doing very well this morning. She is ambulating, voiding and tolerating her diet. She voices no complaint. Vital signs are stable and afebrile. We'll plan continue current care with expectation for likely discharged home tomorrow or Friday. Patient reports: Reports appetite normal, Reports voiding normally, Reports pain well controlled, Reports ambulating normally [place]: doing well Objective - Vital Signs Latest vital signs: Vital Signs Temp Pulse Resp BP Pulse Ox 04/21/21 08:00 97.8 F 83 16 95/61 97 04/21/21 03:12 97.8 F 68 97/63 96 04/20/21 23:18 67 15 04/20/21 23:16 98.1 F 67 15 99/64 96 04/20/21 21:35 97.9 F 61 15 110/65 98 04/20/21 19:31 97.6 F 78 15 119/75 95 04/20/21 15:08 96.4 F L 67 16 108/53 98 04/20/21 14:38 67 17 100/52 97 04/20/21 14:08 65 17 117/61 98 04/20/21 13:53 64 16 106/65 98 04/20/21 13:38 62 16 107/59 96 04/20/21 13:23 73 17 119/63 97 04/20/21 13:08 96.4 F L 72 16 108/61 97 Intake and Output 04/20/21 04/21/21 04/21/21 22:59 06:59 14:59 Intake Total 500 Output Total 475 100 Balance -475 400 Intake: Oral 500 Output: Urine 475 100 Uretheral ([place]) 375 Other: Voiding Method Indwelling Catheter Toilet # Voids 1 1 # Bowel Movements 0 - Exam Lungs: bilateral: normal Chest: Normal S1, Normal S2 Extremities: Present: normal Abdomen: Present: normal appearance, soft. Absent: distention, tenderness Incision: Present: normal, dry, intact Uterus: Present: normal, firm - Labs Labs: Abnormal Lab Results - Last 24 Hours (Table) 04/21/21 Range/Units 05:03 RBC 3.18 L (3.80-5.40) m/uL Hgb 10.0 L D (11.4-16.0) gm/dL Hct 30.9 L (34.0-46.0) %
[2021-04-22] MEDS: IBUPROFEN 600 MG TAB PO SCH ×2 (01:26→06:25)
[2021-04-22] MEDS: HYDROmorphone 2 MG TAB PO PRN ×2 (03:39→08:09)
[2021-04-22] MEDS: ACETAMINOPHEN TAB 500 MG TAB PO SCH (04:19)
[2021-04-22] MEDS: SENNOSIDES-DOCUSATE SODIUM 1 EACH TAB PO SCH (08:09)
[2021-04-22 08:16] VITALS: BP 113/64; PULSE 78; RESP 16; TEMP 98.3
--- NOTE | 2021-04-22 11:16 | P.DS ---
Providers Date of admission: 04/20/21 10:06 Expected date of discharge: 04/22/21 Attending physician: Clifford Pereira Primary care physician: Stated None Hospital Course: Overall Vonnie is doing very well postop day 2. She is ambulating, voiding and tolerating her diet. Other than some incisional pain she denies any issues or problems. We'll discharge her home today with prescription for pain medication and doxycycline. 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 He was at bedside and I verified that he had no drug ALLERGIES. Skin sensitivity warnings were provided. Otherwise discharge instructions were thoroughly reviewed and all questions were answered for her prior to discharge. On physical exam again vital signs are stable and afebrile. Heart regular, lungs clear, extremities are without pain. Abdomen is soft uterus is firm and lochia is reported be light. Incisions otherwise clean dry and intact. Assessment postop day 2. Plan discharged home follow up with me in 1 week. Patient Condition at Discharge: Good Plan - Discharge Summary Discharge Rx Participant: Yes New Discharge Prescriptions: New Ibuprofen [Motrin] 600 mg PO Q6HR PRN #30 tab PRN Reason: Pain HYDROcodone/APAP 5-325MG [Faith 5-325] 1 tab PO Q4HR PRN #30 tab PRN Reason: Pain No Action Kwf-Lgqz-Ugxil Acid [-U Capsule (formulary)] 1 cap PO AC- SUPPER Discharge Medication List Zkg-Wjwi-Gxncm Acid [-U Capsule (formulary)] 1 cap PO AC-SUPPER 09/23/18 [History] HYDROcodone/APAP 5-325MG [Faith 5-325] 1 tab PO Q4HR PRN #30 tab 04/21/21 [Rx] Ibuprofen [Motrin] 600 mg PO Q6HR PRN #30 tab 04/21/21 [Rx] Follow up Appointment(s)/Referral(s): Clifford Pereira DO [Doctor of Osteopathic Medicine] - 1 Week (04-30-2021 at 1:30 p.m.) Activity/Diet/Wound Care/Special Instructions: No heavy lifting, limit stairs and driving, and pelvic rest. If any high temperatures, heavy bleeding, or severe pain call my office Discharge Disposition: HOME SELF-CARE
== END 2021-04-22 12:30 | disposition home or self-care (01) | DRG 787 ==
LOC: 4FBP 10:06
PROVIDERS: ADMIT Obstetrics & Gynecology; ATTEND Obstetrics & Gynecology
PROC: 10D00Z1 Extraction of Products of Conception, Low, Open Approach (ICD-10-PCS; principal; 2021-04-20 12:00)
DX: O34.211 Maternal care for low transverse scar from previous cesarean delivery (principal); O98.32 Other infections with a predominantly sexual mode of transmission complicating childbirth; O99.73 Diseases of the skin and subcutaneous tissue complicating the puerperium; A60.09 Herpesviral infection of other urogenital tract; F41.9 Anxiety disorder, unspecified; O99.343 Other mental disorders complicating pregnancy, third trimester; L29.9 Pruritus, unspecified; Z87.891 Personal history of nicotine dependence; Z37.0 Single live birth; Z3A.39 39 weeks gestation of pregnancy
CPT/HCPCS: 85025; 86850; 86900; 86901